=== PATIENT | male | born 1995 | race African-American/Black ===

== ENCOUNTER 2020-06-24 07:03 | Inpatient (IN) | payer MEDICAID ==
[~2020-06-24] VITALS: Ht 190.5 cm; Wt 113.4 kg
[2020-06-24] VITALS (7 sets, daily range): BP systolic 87–179; BP diastolic 61–112
[~2020-06-24 07:03] MED LIST: AVELOX 400 MG400 M1 PO; BACTRIM DS TAB1 EACH PO; BUTALB-APAP-CA1 EACH PO; GUAIFEN-CODEIN120 ML PO; IBUPROFEN 600600 M1 PO; KEFLEX500 M1 PO; NAPROSYN500 MG PO; NORCO 5-325 TA1 EACH PO; TESSALON PERLE100 MG PO; ZOFRAN ODT4 MG PO
[2020-06-24 07:40] LABS: HEMATOCRIT 37.6 % (42.0-52.0); HEMOGLOBIN 12.4 gm/dL (14.0-18.0); MCH 31.6 pg (26.0-34.0); MCHC 33.1 g/dL (28.0-37.0); MCV 95.6 fL (80.0-100.0); PLATELET COUNT 156 thou/uL (150-400); RBC 3.94 mil/uL (4.50-6.00); RDW 13.6 % (10.5-14.5); WBC 12.2 thou/uL (4.0-11.0)
[2020-06-24 07:54] LABS: ANION GAP 15 mmol/L (7-16); BUN 13 mg/dL (7-18); CALCIUM 8.6 mg/dL (8.5-10.1); CHLORIDE 101 mmol/L (98-107); CO2 21 mmol/L (21-32); CREATININE 2.1 mg/dL (0.7-1.3); GLUCOSE 180 mg/dL (74-106); POTASSIUM 5.6 mmol/L (3.5-5.1); SODIUM 137 mmol/L (136-145)
[2020-06-24 08:04] LABS: ALBUMIN 2.7 g/dL (3.4-5.0); DIRECT BILIRUBIN 0.6 mg/dL (<0.1-0.2); LIPASE 33 U/L (73-393); SGOT 24 U/L (15-37); SGPT 30 U/L (30-65); TOTAL BILIRUBIN 1.3 mg/dL (0.2-1.0); TOTAL PROTEIN 7.4 g/dL (6.4-8.2); TROPONIN-I <0.06 ng/mL (<0.06)
[2020-06-24 09:17] LABS: ABSOLUTE NEUTROPHILS 10.4 thou/uL (1.4-8.2); METAMYELOCYTES 2 %
[2020-06-24 09:18] LABS: LARGE PLATELETS OCCASIONAL
[2020-06-24 09:56] LABS: URINE BILIRUBIN 2+ (Negative); URINE BLOOD NEGATIVE (Negative); URINE CLARITY CLEAR; URINE GLUCOSE-RANDOM* NEGATIVE (Negative); URINE KETONES TRACE (Negative); URINE LEUKOCYTES-REFLEX NEGATIVE (Negative); URINE NITRITE-REFLEX NEGATIVE (Negative); URINE PROTEIN (DIPSTICK) 2+ (Negative)
[2020-06-24 09:59] LABS: URINE COLOR DK YELLOW
[2020-06-24 10:00] LABS: ICTOTEST (BILI CONFIRMATORY) Positive (Negative)
[2020-06-24 10:22] LABS: HYALINE CASTS 0-3 Few /LPF (None Seen); MUCUS 4-6 Moderate strn/LPF (None Seen); SQUAMOUS 0-3 Few /LPF (0-3)
[2020-06-24 10:23] LABS: BACTERIA-REFLEX 1-9 Few /HPF (None Seen); CRYSTALS None Seen /LPF (None Seen); URINE RBC None Seen /HPF (0-2); URINE WBC-REFLEX 0-5 Rare /HPF (0-5)
[2020-06-24 10:47] LABS: BE(vivo) -5.7 mmol/L (-2 to +3); PCO2 30.3 mmHg (35.0-45.0); PO2 64.5 mmHg (80.0-100.0); pH 7.391 (7.360-7.450); sO2 92.8 % (92.0-98.0)
[2020-06-24 12:43] LABS: AMP/METHAMP Negative (Negative); BARBITURATES Negative (Negative); BENZODIAZEPINES Negative (Negative); COCAINE Negative (Negative); METHADONE Negative (Negative); OPIATES POSITIVE (Negative); PCP Negative (Negative)
--- NOTE | 2020-06-24 14:10 | NUR ---
PT ARRIVED TO THE UNIT VIA ED GURNEY AND ONE GLASS BLOCK BENDER ESCORT. PT WAS ABLE TO TRANSFER SELF OUT OF THE GURNEY ONTO THE BED WITH NO ASSISTANCE. IT WAS NOTED THAT IN THE ED THAT PT REFUSED KNEE IMMOBILIZER. UPON ARRIVAL PT WAS ALREADY SEDATED AFTER HYDROCODONE ADMIN. RN ASSESSED THE PT AND NO ACUTE CHANGE IN PT'S STATUS SINCE ADMISSION. PT STILL ON RA, HR AROUND 100s. PT WAS FALLING ASLEEP DURING ADMISSION EVEN AFTER RN TRIED TO WAKE THE PT UP. PT'S PRIMARY CONCERN AT THIS TIME IS TO GET PLENTY OF SLEEP AND REST SO RN TURNED THE LIGHT DOWN, CREATED A LOW STIMULUS ENVIRONMENT AND PT IS SLEEPING AT THIS TIME. ONLY PT'S CELLPHONE CLOTH BIN PACKER AND PERSONAL CLOTHING WERE NOTED BELONGINGS. PT'S MOTHER CALLED ASKING FOR UPDATES, UPDATES WERE PROVIDED. PT;S MOTHER STATED THAT SHE WILL BE CALLING LATER THIS EVENING. CONTINUING TO MONITOR WILL UPDATE NEEDED
[2020-06-24 16:05] LABS: FOLIC ACID 2.8 ng/mL (8.6-58.9); TSH 0.958 uIU/mL (0.358-3.740)
--- NOTE | 2020-06-24 16:26 | EKG ---
[facility] [place] [address] ELECTROCARDIOGRAM REPORT Name: HOWECOLE Room #: 354-P ADM IN M.R.#: [id number] Admission: 06/24/20 Attend Phys: Tello Sy MD Discharge: Date of : 95 Report #: [id number] THIS REPORT FOR: cc: RANDELL - Sho family physician/PCP FAM - Sho family physician/PCP Kris Trinidad MD [facility] ~ THIS REPORT FOR: //name// [facility] ED Test Date: 2020-06-24 Test Time: 07:30:47 Pat Name: COLE HOWE Department: Room: [facility] Gender: M Instrumentation Designer: no : 1995 Requested By: Jeremi Flor Order Number: [id number] MD: Kris Trinidad Measurements Intervals [place] Rate: 113 P: 54 OR: 143 QRS: 27 QRSD: 87 T: -3 QT: 312 QTc: 428 Interpretive Statements Sinus tachycardia Probable left atrial enlargement Nonspecific T abnormalities, lateral leads No previous ECG available for comparison Electronically Signed On 06-24-2020 16:26:22 CDT by Kris Trinidad [email or web address] <ELECTRONICALLY SIGNED> By: Kris Trinidad MD, FACC 06/24/20 1626 Kris Trinidad MD, [facility] /EPI
[2020-06-25 02:06] LABS: GLYCOHEMOGLOBIN (HGB A1C) 5.2 % (4.8-5.6)
--- NOTE | 2020-06-25 03:06 | NUR ---
Patient progressing towards outcome goals. Good pain control with Hydrocodone. Has history of anxiety stopped taking medication he cannot recall. Wants to go home. IVfluids infusing. Up to bathroom with standby assist. Oxygenation optimal on roomair, afebrile this morning. Anxious BP and HR up.
[2020-06-25 05:49] VITALS: BP 182/113
[2020-06-25 07:45] VITALS: BP 188/119
[2020-06-25 08:48] LABS: ABSOLUTE NEUTROPHILS 11.4 thou/uL (1.4-8.2); BASOPHILS 0.2 % (0.0-2.0); EOSINOPHILS 0.5 % (0.0-3.0); HEMATOCRIT 36.9 % (42.0-52.0); HEMOGLOBIN 12.3 gm/dL (14.0-18.0); LYMPHOCYTES 5.7 % (24.0-44.0); MCH 31.5 pg (26.0-34.0); MCHC 33.4 g/dL (28.0-37.0); MCV 94.2 fL (80.0-100.0); PLATELET COUNT 209 thou/uL (150-400); POLYS 88.6 % (36.0-66.0); RBC 3.91 mil/uL (4.50-6.00); RDW 13.9 % (10.5-14.5); WBC 12.9 thou/uL (4.0-11.0)
[2020-06-25 09:23] LABS: ALBUMIN 2.2 g/dL (3.4-5.0); CALCIUM 8.6 mg/dL (8.5-10.1); POTASSIUM 3.3 mmol/L (3.5-5.1); TOTAL BILIRUBIN 0.7 mg/dL (0.2-1.0)
--- NOTE | 2020-06-25 14:27 | NUR ---
INITIAL ASSESSMENT: SW reviewed chart and spoke with nursing. Pt was admitted from home due to cellulitis/pneumonia/sepsis. Pt placed in Enhanced Isolation to r/o COVID-19. Pt's test is negative. Pt is afebrile and not requiring O2. Pt is on IV abx. Pt does not have health insurance. SW spoke with pt via phone. Introduced role of SW. Pt is alert/orientated x 4. Pt reports he lives at home with family. Prior to admission, pt was independent with ADLs. No use of DME. Pt states he goes to [facility] for primary care. Pt denies having any discharge needs. SW is following to assist as needed with discharge planning.
[2020-06-25] MEDS ORDERED: METOPROLOL SUCC50 MG PO (15:54)
[2020-06-25] MEDS ORDERED: STRIBILD TABLE1 EACH PO (15:54)
[2020-06-25] MEDS ORDERED: OXYCODONE-ACET1 EACH PO (15:55)
--- NOTE | 2020-06-25 16:55 | NUR ---
JANIE HAS RESTED IN ROOM THROUH THE DAY. HE IS ALERT ORIENTED X4. DENIES PAIN. BP WAS HIGH IN THE AM AND CONTRTOLLED WITH HYDRALAZINE. POSITIVE BLOOD CULTURES RESULTS CALLED FROM [facility]. PROVIDER NOTIFIED.
[2020-06-25 16:59] VITALS: BP 180/99
--- NOTE | 2020-06-25 17:51 | NUR ---
PT ARRIVED TO UNIT AT APPROX 1720 FROM 3W. PT ALERT AND ORIENTED. C/O PAIN. WILL TREAT PER ORDERS. O2 SATS WNL ON ROOM AIR. PT DENIES NEEDS/CONCERNS AT THIS TIME. WILL CONTINUE TO MONITOR. WILL PASS ON REPORT TO JAMES TEIXEIRA.
[2020-06-25 18:00] VITALS: BP 171/113
[2020-06-25 20:20] VITALS: BP 180/116
[2020-06-25 23:51] VITALS: BP 159/101
[2020-06-26 03:28] VITALS: BP 177/116
--- NOTE | 2020-06-26 04:47 | NUR ---
PT TRANSFERED FROM 3 AT BEGINNING OF SHIFT, HR AND BP HAS REMAINED ELEVATED PRN HYDRALIZINE GIVEN TWICE THROUGH THE NOC, PRN PAIN MEDS GIVEN NEEDED FOR C/O FRANZ, R KNEE PAIN, REMINDED PT TO STAY OFF OF R LEG AND TO CALL FOR ANY ASSISTANCE, TOLERATING REG DIET, VOIDING PER URINAL, WILL CON'T TO MONITOR PER MONITOR.
[2020-06-26 06:00] LABS: HEMATOCRIT 36.5 % (42.0-52.0); HEMOGLOBIN 12.5 gm/dL (14.0-18.0); MCH 32.2 pg (26.0-34.0); MCHC 34.2 g/dL (28.0-37.0); RBC 3.88 mil/uL (4.50-6.00); RDW 13.9 % (10.5-14.5); WBC 11.1 thou/uL (4.0-11.0)
[2020-06-26 06:42] LABS: CALCIUM 8.6 mg/dL (8.5-10.1); CREATININE 1.1 mg/dL (0.7-1.3)
[2020-06-26 06:43] LABS: POTASSIUM 2.7 mmol/L (3.5-5.1)
[2020-06-26 08:40] VITALS: BP 199/118
[2020-06-26 12:43] VITALS: BP 156/107
--- NOTE | 2020-06-26 16:48 | NUR ---
PT WILL NEED CRUTCHES ISSUED PRIOR TO DC. CONTACT PT TO ISSUE. WAITING ON BRACE TO BE ORDERED BY PHYSICAIN AND FITTED BY PT. PT ESTABLISHED WITH PRIMARY CARES AT [facility].
--- NOTE | 2020-06-26 16:50 | NUR ---
ASSESSMENT CHARTED - MEDS PER DEC -- SEE DEC FOR PAIN MEDICATION GIVEN. PT WITH CO'S OF HEADACHE/ LEG PAIN ON RIGHT AND PAIN DOWN THE RIGHT SIDE OF BODY. PT HAS BEEN STANDING AT THE BEDSIDE TO VOID. BRIAN DIET AND FLUIDS. NO CO'S OF NASUEA. PT WANTING A BRACE FOR HIS LEG - ASKED HIM IF THEY DID NOT GIVE HIM ONE AT [facility] AND HE STATED THEY DID AND ALSO GAVE HIM CRUTCHES - INFORMED HIM THAT HE NEEDS TO HAVE THEM DELIVERED TO [facility] FOR HIS USE. STATED HIS MOTHER WILL BRING THEM UP. PT HAS SPENT THE DAY IN A DARK ROOM WATCHING TV AND TALKING ON THE PHONE. WAITING TO BE SEEN BY INFECTIOUS DISEASE DOC. NO CO'S AT THE PRESENT TIME.
[2020-06-26 20:00] VITALS: BP 118/113
[2020-06-27] VITALS: BP 156/85
[2020-06-27 08:30] VITALS: BP 152/103; BP 156/100
[2020-06-27 11:50] VITALS: BP 152/100
[2020-06-27 16:30] VITALS: BP 170/101
[2020-06-27 18:32] VITALS: BP 164/99
--- NOTE | 2020-06-27 18:44 | NUR ---
ASSUMMED PT CARE AT APPROXIMATELY 0700. PT A&O X4. ASSESSMENT CHARTED. FALL PRECAUTIONS IN PLACE. PT DENIES HAVING CHEST PAIN. PT DENIES HAVING SOB. PT STATED HE HAD PAIN IN R KNEE, HAND AND A HEADACHE. PT RECEIVED ANALGESICS THROUGHOUT THE DAY. PT STATED ANALGESICS HELPED RELIEVE PAIN. PT AND OT CONSULTED. PT MAX ASSIST WHEN TRANSFERING. EDUCATED PT AND PT'S FAMILY ABOUT POC. PT AND PT'S FAMILY STATED UNDERSTANDING AND DENIED HAVING FURTHER QUESTIONS. PT SCHEDULED FOR PROCEDURE TOMORROW. CONSENT SIGNED. INFOMED DR. HIDALGO OF PT'S HYPOKALEMIA. ORDERS RECEIVED AND IMPLEMENTED. WILL CONTINUE TO MONITOR. PT BP ELEVATED. PRN MEDICATION GIVEN. WILL CONTINUE TO MONITOR BP. ICE PACK PROVIDED FOR FEVER. PT COMFORTABLE IN BED. PT DENIES HAVING FURTHER CONCERNS.
[2020-06-27 19:20] VITALS: BP 167/108
--- NOTE | 2020-06-27 23:41 | NUR ---
PT IS ALERT AND ORIENTED X4 LUNGS ARE CLEAR.ABDOMEN IS ROUND AND SOFT BOWEL SOUNDS ACTIVE X4. ON ROOM AIR. PT GOT UP TO CHAIR TO SLEEP IN THAT IS WHAT HE WANTED. PAIN MEDS GIVEN FOR RIGHT KNEE PAIN. IV ANTIBIOTICS GIVEN ORDERED. WILL NPO FOR SURGERY IN AM AFTER MIDNIGHT. NORMAL SINUS RHYTHM TO SINUS TACHYCARDIA ON THE MONITOR. CALL LIGHT WITHIN REACH IF NEEDS ASSISTANCE PER NURISING.
[2020-06-28] VITALS (9 sets, daily range): BP systolic 146–193; BP diastolic 89–129
[2020-06-28 04:28] LABS: CALCIUM 8.8 mg/dL (8.5-10.1); CREATININE 0.9 mg/dL (0.7-1.3)
--- NOTE | 2020-06-28 11:11 | HC ---
[facility] [place] [address] CONSULTATION Name: HOWECOLE Jovanni Room #: 218-P ADM IN ..#: [id number] Admission: 06/24/20 Attend Phys: Tello Sy MD Discharge: Date of : 95 Report #: [id number] THIS REPORT FOR: cc: RANDELL - No family physician/PCP FAM - No family physician/PCP Georges Ramos MD ~ CC: [facility] physician/PCP Tello Sy DATE OF SERVICE: 06/27/2020 HISTORY OF PRESENT ILLNESS: This 25-year-old presents with pain involving the right hand, right chest wall and right knee after a fall while intoxicated about 1 week ago. He apparently developed joint pain and then soft tissue pain, swelling, and fever. He was seen at [facility] on several occasions and felt to have cellulitis and started on antibiotics. He presents here now with ongoing symptoms, principally involving the right hand and the right knee. X-rays and MRI studies are pending. I am uncertain if previous imaging has been performed. He is somewhat apathetic and difficult to evaluate. The right chest wall reveals a rash and some redness and tenderness consistent with mild cellulitis. The right hand reveals some redness and tenderness over the fifth metacarpal and MP joint. There seems to be good range of motion, no instability, it is difficult to rule out bony injury based on clinical exam, he does seem to have some redness and swelling, possibly consistent with cellulitis at the hand. The right knee is diffusely uncomfortable and he demonstrates limited range of motion and some generalized hypersensitivity. There does seem to be mild soft tissue swelling in the prepatellar region, which could be consistent with some fluid accumulation in the bursa. The knee joint itself was difficult to assess given his subjective symptoms. There is no obvious malalignment or instability, but he does have pain with movement. There may be a mild knee effusion. There is some generalized redness and warmth consistent with cellulitis. It is difficult to rule out pyarthrosis or a prepatellar bursa infection. His laboratory studies demonstrated an elevated white count of 11,000 and mild temperature elevation. I note that he does have a history of HIV positive, but he has not had other bacterial infections, nor any other joint problems. His history is certainly suggestive of traumatic injuries to the right hand and right knee, probably consistent with contusion and sprain. I believe he may have developed cellulitis in both areas as well. Currently, his blood cultures are no growth and there is no area of drainage for culture at either the hand or the knee. I would agree that he may have some fluid in the prepatellar bursa, but he is [facility] [address] [place] [address] CONSULTATION Name: COLE HOWE Room #: 218-P [facility] IN .R.#: [id number] Admission: 06/24/20 Attend Phys: Tello Sy MD Discharge: Date of : 95 Report #: [id number] certainly too uncomfortable to tolerate a simple irrigation and debridement without anesthesia. In addition, I am concerned that he may have a joint effusion with possible contamination in the joint, which might require irrigation of the joint itself. Consequently, I think we should go ahead with x-rays and an MRI study and proceed with planning for possible irrigation of the right knee tomorrow under general anesthetic. Pending his findings and progress and my discussion with Dr. Jose, we will decide whether we would limit this to the prepatellar bursa or include an irrigation of the knee joint itself. <ELECTRONICALLY SIGNED> By: Georges Ramos MD 06/28/20 1111 1101 1113 Georges Ramos MD /nt
[2020-06-28 12:13] LABS: BF NUCLEATED CELLS 250 /mm3; BF RBC 4844 /mm3
[2020-06-28 13:31] LABS: SOURCE KNEE JOINT; TOTAL VOLUME 8 mL
[2020-06-28 13:32] LABS: CLARITY HAZY; COLOR YELLOW
[2020-06-28 13:39] LABS: BF NEUTROPHILS 46 %
[2020-06-28 13:42] LABS: BF MACROPHAGE 16 %
--- NOTE | 2020-06-28 18:08 | NUR ---
PT CARE ASSUMED AT 0700. ASSESSMENTS CHARTED. MEDICATIONS CHARTED. PT TO SURGERY AT 1000; RETURNED AT 1145. FLUID REMOVED, AREA CLEANSED AND LEFT OPEN; PACKED AND LIZANDRO WRAPPED. PT HAS RECIEVED FENTANYL FOR PAIN. PLACED LH IV; RAC STILL REMAINS. PT MANAGED TRANSFER FROM BED TO CHAIR. RHYTHM ST IN 110'S. AO X 4. USES URINAL.
[2020-06-29 00:25] VITALS: BP 148/99
--- NOTE | 2020-06-29 03:51 | NUR ---
ASSESSMENTS CHARTED, MEDS CHARTED GIVEN. PATIENT SITTING IN RECLINER AT START OF SHIFT. MOVED TO BED WITH ASSIST OF ONE. STILL NEEDS TO MEET WITH PHYSICAL THERAPY TO WORK ON CRUTCH SKILLS. PAIN MEDS GIVEN AT FIRST OF SHIFT. FALL PRECAUTIONS IN PLACE DURING SHIFT. ICE PACK GIVEN TO ALTERNATE BETWEEN KNEE AND HAND.
[2020-06-29 05:49] VITALS: BP 139/92
[2020-06-29 07:00] VITALS: BP 145/98
[2020-06-29 09:06] LABS: CD4 % 24.3 % (30.8-58.5); CD4:CD8 0.55 (0.92-3.72); CD8 % 44.3 % (12.0-35.5)
[2020-06-29 10:13] LABS: CALCIUM 8.8 mg/dL (8.5-10.1); CREATININE 0.9 mg/dL (0.7-1.3); POTASSIUM 3.6 mmol/L (3.5-5.1)
--- NOTE | 2020-06-29 11:31 | O ---
[facility] [place] [address] OPERATIVE REPORT Name: COLE HOWE Jovanni Room #: 218-P [facility] IN ..#: [id number] Admission: 06/24/20 Attend Phys: Tello Sy MD Discharge: Date of : 95 Report #: [id number] THIS REPORT FOR: cc: [facility] - No family physician/PCP FAM - No family physician/PCP Georges Ramos MD ~ CC: [facility] physician/PCP Tello Sy DATE OF SERVICE: 06/28/2020 PREOPERATIVE DIAGNOSIS: Infected right knee with prepatellar bursitis and infected right hand with dorsal cellulitis. POSTOPERATIVE DIAGNOSIS: Right knee prepatellar bursitis abscess and right hand dorsal soft tissue abscess. PROCEDURES PERFORMED: 1. Irrigation and debridement, right knee prepatellar infected bursitis. 2. Open debridement and irrigation of abscess, dorsum right hand. 3. Aspiration, right knee for synovial fluid analysis and culture. SURGEON: Georges Ramos MD INDICATIONS: This 25-year-old gentleman fell 1 week ago while intoxicated landing on the right knee and the right hand. Subsequently, he has developed pain, swelling and fever with findings consistent with infection. He has been on antibiotics, but does not have any wound cultures yet. Blood cultures are currently pending. His clinical exam and MRI study suggests no significant structural injuries to the right knee, but there is obvious swelling and pain over the prepatellar bursa consistent with an infected bursitis. The right hand has less significant tenderness, redness and swelling over the dorsum of the hand consistent with soft tissue abscess. X-rays reveal no evidence of fracture. DESCRIPTION OF PROCEDURE: The patient was taken to the operating room where he was placed under brief general anesthetic. He has been continued on his preoperative antibiotic regimen. The right knee and leg were meticulously prepped and draped. A skin incision was made over the anterior aspect of the knee, exposing the prepatellar bursa. A moderate amount of purulent material was removed. Cultures were sent. The bursa was aggressively irrigated with suction lavage. The wound was left open. A moderate amount of iodoform gauze was gently packed in the wound simply to keep the skin incision open and allow continued drainage. Once this wound was dry and , the upper medial border of the knee was once again prepped and then a needle was used to aspirate the joint fluid. The fluid appears to be clear and nonpurulent most consistent [address] [address] OPERATIVE REPORT Name: HOWECOLE Room #: 218-P [facility] IN ..#: [id number] Admission: 06/24/20 Attend Phys: Tello Sy MD Discharge: Date of : 95 Report #: [id number] with simple synovitis. A specimen was sent for cell count and culture. I elected not to perform an open arthrotomy nor more aggressive irrigation of the knee given these limited clinical findings. A sterile dressing was then applied to the knee. Attention was then directed to the right hand, which was meticulously prepped and draped. There was mild puffiness and redness over the dorsum of the hand overlying the fifth MP joint. There was no skin abrasion and no laceration and no evidence of bony injury. His preoperative x-rays have been normal. I elected to simply aspirate the subcutaneous tissues initially. This did reveal purulent material consistent with subcutaneous abscess. Given this, a small skin incision was made exposing this area. This was then copiously irrigated and then also left open with a small amount of iodoform packing. It does not appear to me that the MP joint was involved and I elected not to violate the joint with needle aspiration at this time as I am concerned that I will simply inoculate the joint with overlying infection. A sterile dressing was applied. The patient was awakened and returned to recovery room in satisfactory condition. <ELECTRONICALLY SIGNED> By: Georges Ramos MD 06/29/20 1131 1109 1156 Georges Ramos MD /nt
[2020-06-29 12:00] VITALS: BP 140/72
[2020-06-29 15:30] VITALS: BP 141/80
--- NOTE | 2020-06-29 17:27 | NUR ---
ASSUMED CARE PT SHIFT CHANGE. ASSESSMENTS CHARTED.MEDS GIVEN PER DEC. PT ALERT AND ORIENTED.VSS. C/O PAIN MANAGED WITH PO & IV MEDS. O2 SATS WNL ON RA DENIES SOB. PT UP WITH PHYS THERAPY TOLERATING FAIR. RIGHT HAND AND KNEE DRESSINGS CHANGED PER ORTHO PHYSICIAN ORDER. FAMILY UPDATED ON POC. PT CURRENTLY SITTING UP IN BED DENIES NEEDS. WILL CONT TO MONITOR AND FOLLOW POC. WILL PASS ON REPORT TO JAMES TEIXEIRA.
[2020-06-29 20:29] VITALS: BP 143/77
--- NOTE | 2020-06-30 02:05 | NUR ---
ASSESSMENTS CHARTED, MEDS CHARTED GIVEN. PATIENT RESTING IN BED DURING SHIFT. PATIENT UP WITH WALKER TO BATHROOM. HAD BOWEL MOVEMENT. C/O PAIN IN RIGHT KNEE DURING START OF SHIFT. IV ABX THERAPY. FALL PRECAUTIONS IN PLACE DURING SHIFT.
[2020-06-30 05:42] VITALS: BP 147/89
[2020-06-30 07:35] VITALS: BP 144/67
--- NOTE | 2020-06-30 09:33 | NUR ---
LIZANDRO WRAP, KERLIX DRESSINGS INPLACE WITH NO DRINAGE NOTED TO RIGHT HAND AND RIGHT KNEE.
[2020-06-30 11:27] VITALS: BP 142/75
--- NOTE | 2020-06-30 14:19 | NUR ---
spoke with patient who reports he does not have health insurance. He does not have a PCP utilizes Dr Jose. He called mother on speaker phone. Alerted [employer] left some information in room to assist with completion of medicaid application. Alerted to mom it highlightts the information like copy of certificate, drivers licease, SS card and pertinent information to apply for [place] medicaid. Updated Dr Gonzalez and Dr Jose no insurance to determine dc planning.
[2020-06-30 15:44] VITALS: BP 153/85
--- NOTE | 2020-06-30 16:42 | NUR ---
NO EVENTS THROUGHOUT THE SHIFT. PT/OT SIGNED OFF ON PT. OK TO GET UP ADLIB TO BATHROOM. PT ANXIOUS TO GO HOME. PT DOES NOT HAVE INSURANCE. [employer] SECURITY ARCHITECT WORKING WITH HIM. AWAITING WHAT DR. ESCALANTE SAYS ABOUT ABX UPON DISCHARGE. PT WOULD NEED PICC/MIDLINE FOR OUTPT ABX. DR. ESCALANTE NOT ROUNDED OF THIS TIME TODAY.
[2020-06-30 19:41] VITALS: BP 153/89
--- NOTE | 2020-07-01 04:47 | NUR ---
PT IS ALERT AND ORIENTED X4. LUNGS ARE CLEAR ON ROOM AIR. UP AND AMBUALTED CLEANED HIMSELF UP IN BATHROOM. BOWEL SOUNDS ACTIVE X4. PAIN MEDS GIVEN SEE MAR FOR TIME OF ADMINISTRATION TIME. RIGHT KNEE IS WRAPPED AND RIGHT HAND IS WRAPPED UP. SLEEPING WELL CALL LIGHT WITHIN REACH IF NEEDS ASSISTANCE PER NURSING. NO ISSUES OR CONCERNS. GETING ANTIBIOTICS ORDERED
[2020-07-01 05:41] VITALS: BP 145/81
[2020-07-01 08:30] VITALS: BP 169/93
[2020-07-01] MEDS ORDERED: ZYVOX600 MG PO (10:32)
--- NOTE | 2020-07-01 11:28 | NUR ---
Patient to ne home. Vouched medication in [facility] pharmacy for $35.48.
[2020-07-01 11:30] VITALS: BP 148/100
[2020-07-01 13:51] VITALS: BP 139/88
== END 2020-07-01 15:32 | disposition home or self-care (01) | DRG 853 ==
LOC: ER 07:03 → EROBS 10:53 → 2N 10:53 → 3W 13:17 → 2N 06-25 17:19
PROVIDERS: Emergency Medicine; Hospitalist; Nurse Practitioner; Orthopaedic Surgery; Specialist; ADMIT Hospitalist; ATTEND Hospitalist
PROC: 0M9N3ZZ Drainage of Right Knee Bursa and Ligament, Percutaneous Approach (ICD-10-PCS; principal; 2020-06-28)
PROC: 0J9J0ZZ Drainage of Right Hand Subcutaneous Tissue and Fascia, Open Approach (ICD-10-PCS; principal; 2020-06-28)
DX: A41.9 Sepsis, unspecified organism (principal); J18.9 Pneumonia, unspecified organism; E44.0 Moderate protein-calorie malnutrition; N17.9 Acute kidney failure, unspecified; L02.415 Cutaneous abscess of right lower limb; L03.113 Cellulitis of right upper limb; J98.11 Atelectasis; R65.20 Severe sepsis without septic shock; E87.6 Hypokalemia; E66.9 Obesity, unspecified; M71.161 Other infective bursitis, right knee; Z20.828 Contact with and (suspected) exposure to other viral communicable diseases; Z68.31 Body mass index [BMI] 31.0-31.9, adult; Z79.899 Other long term (current) drug therapy
CPT/HCPCS: 10081; 10879; 50101; 50386; 57091; 62110; 62900; 70005

== ENCOUNTER 2020-09-02 15:51 | Inpatient (IN) | payer MEDICAID ==
[~2020-09-02] VITALS: Ht 188 cm; Wt 126.8 kg
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
[~2020-09-02 15:51] MED LIST changes: +METOPROLOL SUCC50 MG PO; +OXYCODONE-ACET1 EACH PO; +STRIBILD TABLE1 EACH PO; +ZYVOX600 MG PO
[2020-09-02 16:17] LABS: ABSOLUTE NEUTROPHILS 2.6 thou/uL (1.4-8.2); BASOPHILS 0.5 % (0.0-2.0); EOSINOPHILS 0.2 % (0.0-3.0); HEMATOCRIT 45.5 % (42.0-52.0); MCH 31.7 pg (26.0-34.0); MCV 95.9 fL (80.0-100.0); MONOCYTES 8.8 % (1.0-8.0); PLATELET COUNT 250 thou/uL (150-400); POLYS 59.5 % (36.0-66.0); RBC 4.75 mil/uL (4.50-6.00); WBC 4.4 thou/uL (4.0-11.0)
[2020-09-02 16:21] LABS: ANION GAP 22 mmol/L (7-16); BUN 11 mg/dL (7-18); CALCIUM 9.3 mg/dL (8.5-10.1); CHLORIDE 103 mmol/L (98-107); CO2 18 mmol/L (21-32); CREATININE 1.4 mg/dL (0.7-1.3); GLUCOSE 72 mg/dL (74-106); POTASSIUM 3.3 mmol/L (3.5-5.1); SODIUM 143 mmol/L (136-145)
[2020-09-02 16:27] LABS: ALBUMIN 4.4 g/dL (3.4-5.0); SALICYLATE < 2.8 mg/dL (2.8-20.0); SGOT 40 U/L (15-37); SGPT 47 U/L (30-65); TOTAL BILIRUBIN 0.3 mg/dL (0.2-1.0); TOTAL PROTEIN 8.2 g/dL (6.4-8.2)
[2020-09-02] MEDS ORDERED: KEFLEX500 M1 PO (16:30)
[2020-09-02 16:49] LABS: URINE BILIRUBIN NEGATIVE (Negative); URINE BLOOD NEGATIVE (Negative); URINE CLARITY CLEAR; URINE COLOR YELLOW; URINE GLUCOSE-RANDOM* NEGATIVE (Negative); URINE KETONES 1+ (Negative); URINE LEUKOCYTES-REFLEX NEGATIVE (Negative); URINE NITRITE-REFLEX NEGATIVE (Negative); URINE PROTEIN (DIPSTICK) NEGATIVE (Negative); URINE SPECIFIC GRAVITY >= 1.030 (1.005-1.035); URINE UROBILINOGEN 0.2 E.U./dl (0.2-1.0)
[2020-09-02 16:57] LABS: AMP/METHAMP Negative (Negative); BARBITURATES POSITIVE (Negative); BENZODIAZEPINES Negative (Negative); COCAINE POSITIVE (Negative); METHADONE Negative (Negative); OPIATES Negative (Negative); PCP Negative (Negative)
[2020-09-02 16:58] VITALS: BP 154/99
[2020-09-02 17:18] LABS: BE(vivo) -9.5 mmol/L (-2 to +3); HCO3 16.7 mmol/L (22.0-26.0); PCO2 VENOUS 37.5 mmHg (41.0-51.0)
[2020-09-02 20:06] LABS: MAGNESIUM 1.7 mg/dL (1.8-2.4)
[2020-09-02 23:46] VITALS: BP 164/82
[2020-09-03] VITALS (40 sets, daily range): BP systolic 127–207; BP diastolic 72–130
--- NOTE | 2020-09-03 00:15 | NUR ---
0000- patient arrived at 2350, He was assisted to the ICU bed from the cart, with security. He is restless and aggitated. Security along with clubhouse attendant, multiple nurses, and sitter helped him through his arrival to ICU as he was frustrated being here. Reassurance and plan of care explained to patient. He expressed he isn't suicidal and he probably just said that because he was drunk and did some drugs. He pulled off his panel monitor, o2 sat probe, and expressed we better not touch him again to put them back on. Again, reassurance provided. Nurse to continue to monitor patient status.
--- NOTE | 2020-09-03 00:45 | NUR ---
0038- Nurse called MASTERCAM PROGRAMMER in regards to patients aggitation and restlessness. Nurse also expressed there is no order for restraints. Nurse to continue to monitor patient status.
--- NOTE | 2020-09-03 02:09 | NUR ---
0209-Nurse left message with NUCLEAR MONITORING TECHNICIAN in regards to patients blood pressure of 206/101 and heart rate of 95. Also, still need restraint order entered, as RN called her earlier, after he arrived to ICU.
--- NOTE | 2020-09-03 02:10 | NUR ---
0137- Nurse called security to assist with belongings of patient. Also, patient needed soft wrist restraints. He is restless and aggitated, with mild startle and hallucinations. Will continue to monitor.
--- NOTE | 2020-09-03 02:35 | NUR ---
0230- Patients mother, Raina, called and wated an update on patient status. She answered some personal questions about patient and gave her the security code. Patient expressed she is his social contact worker and wants to talk with her, nurse explained the SI rules. Patients mom expressed she will come up here to be with him when cleared by the Physician. Nurse explained the SI policy, she expressed the patient has been through a lot and she wants him to get better, and that she is the one that found him today. Nurse provided reassurance and the phone call was ended.
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
[2020-09-03 09:02] LABS: HEMATOCRIT 44.7 % (42.0-52.0); HEMOGLOBIN 14.6 gm/dL (14.0-18.0); MCH 31.7 pg (26.0-34.0); MCHC 32.6 g/dL (28.0-37.0); MCV 97.3 fL (80.0-100.0); RBC 4.59 mil/uL (4.50-6.00); RDW 14.6 % (10.5-14.5); WBC 4.1 thou/uL (4.0-11.0)
[2020-09-03 09:26] LABS: CALCIUM 8.7 mg/dL (8.5-10.1); CREATININE 1.5 mg/dL (0.7-1.3)
[2020-09-03 09:27] LABS: POTASSIUM 4.6 mmol/L (3.5-5.1)
--- NOTE | 2020-09-03 10:24 | NUR ---
0700-ASSUMED CARE OF PT.--VW 0830-PT'S MOM,CHRISTA,CALLED IN TO [facility] ON PT. UPDATE GIVEN. REINFORCED NO VISITORS, NO FAMILY CONTACT, NO PHONE CALLS ALLOWED UNTIL SEEN BY PSYCH. SHE VERBALIZED SHE UNDERSTOOD. PRECEDEX DRY.WHILE WAITING FOR NEW BAG FROM PHARMACY, ATIVAN GIVEN.--VW 1030-LABS OBTAINED EARLIER. SHIRT CUT OFF. EARRING LT EAR (NONE IN RT) REMOVED & BAGGED.WILL SEND TO SECURITY. 2 SMALL NOSE PIERCINGS (1 EACH NARE) LEFT IN-UNABLE TO RETRIEVE EASILY & PT WAKING UP WHILE ATTEMPT MADE. RESP DEEP, EVEN, REGULAR.--VW
--- NOTE | 2020-09-04 05:35 | NUR ---
ASSUMED PATIENT CARE AT 1845. VITAL SIGNS STABLE WITH PATIENT HAVING NO COMPLAINTS OF PAIN OR NAUSEA. FULLY ORIENTED, PATIENT IS ABLE TO CALL APPROPRIATELY FOR NEEDS. RESTRAINED DUE TO AGITATION THROUGHOUT SHIFT. PATIENT HAS BECAME CALMER SHIFT HAS PROGRESSED ALLOWING NURSE TO TITRATE PRECEDEX DOWN. PATIENT IS STILL INSISTENT IN SPEAKING TO FAMILY MEMBERS AND LEAVING FACILITY DESPITE BEING INFORMED OF PROTOCOLS. NO SELF BEHAVIORS, OR AGGRESSIVE BEHAVIORS NOTED. PATIENT KEPT MOSTLY NPO WITH SMALL AMOUNT OF ICE CHIPS GIVEN FOR COMFORT. QT INTERVAL MONITORED THROUGHOUT SHIFT WITH NORMAL FINDINGS. POSSIBLE TRANSFER OUT OF ICU TODAY. CONTINUE PLAN OF CARE.
[2020-09-04 05:41] LABS: HEMATOCRIT 42.7 % (42.0-52.0); HEMOGLOBIN 14.2 gm/dL (14.0-18.0); MCH 31.5 pg (26.0-34.0); MCHC 33.2 g/dL (28.0-37.0); MCV 94.8 fL (80.0-100.0); RBC 4.5 mil/uL (4.50-6.00); RDW 13.9 % (10.5-14.5); WBC 4.6 thou/uL (4.0-11.0)
[2020-09-04 05:52] LABS: CREATININE 1.4 mg/dL (0.7-1.3); POTASSIUM 3.9 mmol/L (3.5-5.1)
[2020-09-04 07:00] VITALS: BP 136/79
[2020-09-04 07:59] VITALS: BP 144/78
[2020-09-04 08:02] VITALS: BP 140/74
--- NOTE | 2020-09-04 09:45 | NUR ---
chart review. unable to visit with his rt SI precaution. report from bedside nurse. md de consult, no affidavit as of now.
--- NOTE | 2020-09-04 12:37 | NUR ---
Case discussed with the care team. Pt tx to CCU from ICU and is s/p cabg. Chest tube dc'd per CTS and the pt is working with therapy. He was indep prior to admission and lives with his . He had two steps to enter his single story home. No assistive device prior to admission. He is retired and drives. Will follow along and see how he does with therapy. Anticipate dc to home Monday or Monday pending his progress.
--- NOTE | 2020-09-04 14:27 | NUR ---
assumed care of patient at 0700, pt is A/O times 4. pt is very restless and repetitive with his requests and concers. pt has severally stated that he does not want to be here and would like to go home. this nurser, the physicians and the mom have explained to him on multiple occasions why is not in a position to make the decision. mother has been updated and she has been here to see the patient. pt will some times refuse care and refuse to be touched even for assesmemt. case management working to find a facility that will have bed availability for the pt. pt with transfer orders out of ICU. report called and given to accepting nurse.
[2020-09-04 16:35] VITALS: BP 176/112
--- NOTE | 2020-09-04 16:58 | NUR ---
Assumed care of pt. in the afternoon. Pt. was nervous and hyperactive. Vitals were stable. Sitter in place.
[2020-09-04 20:17] VITALS: BP 167/116
[2020-09-05 06:41] VITALS: BP 144/112
--- NOTE | 2020-09-05 09:09 | NUR ---
PT AOX4. PT DENIES PAIN AND SOB WHILE ON ROOM AIR. PT REPORTS ANXIETY WITH OBSERVED RESTLESSNESS. PT RECEIVING PRN IV ATIVAN Q4HR. PT DENIES SUICIDAL IDEATION, PLAN, AND DEPRESSION. SITTER MAINTAINED, ROOM CLEANED. PT REFUSING TO REMOVE PHONE FROM PERSON DUE TO REPORTS OF SUPPORT FROM FAMILY VIA FACETIME. PT OBSERVED WITHOUT BEHAVIORAL SIGNS OF CONCERN. ISRA COATS NOTIFIED, RECEIVED ORDERS THAT PT MAY KEEP PHONE ON PERSON HE IS NOT SHOWING SIGNS OF SAFETY CONCERN. PT AMBULATING IN ROOM AND TO BATHROOM INDEPENDENTLY. PT TOLERATING PO INTAKE OF FLUIDS AND REGULAR DIET WITHOUT ISSUE. PT NOTED TO HAVE EMESIS X1 AT START OF SHIFT DUE TO REPORTS OF COUGHING. PT ENCOURAGED TO NOTIFY STAFF FOR ALL NEEDS, SITTER TO BE MAINTAINED, FREQUENT MONITORING WILL CONTINUE.
[2020-09-05 10:27] VITALS: BP 157/116
--- NOTE | 2020-09-05 15:24 | NUR ---
Assumed care of pt. at 0700. Was alerted that there were some issues overnight d/t initially being allowed to have his cellphone in ICU. Christie TEIXEIRA was able to get orders for pt. to keep cellphone as long as he did not have the machine preservative filler in the room. Pt. then requested he have a visitor come up, but his mother had already been in the hosiptal with him in the ICU and our unit last night. Transformer Builder Dara was notified as well as security. Pt. became distressed and was pacing in room. Transformer Builder Dara spoke with patient and risk management and said that he could have the visitor in his room as long as he was screened by security before entering hospital. Pt. became far less volitile upon visitor entering room.
[2020-09-05 15:30] VITALS: BP 153/102
[2020-09-05 20:08] VITALS: BP 115/112
--- NOTE | 2020-09-06 03:21 | NUR ---
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
[2020-09-06 07:02] VITALS: BP 134/85
--- NOTE | 2020-09-06 11:46 | NUR ---
Assumed care of pt at 0700. Pt sleepy in the am and asks the nurse to come back later with morning meds. Pt's brother spotted on the unit and stopped by nurse before going to the room per Dr Marques order. Pt becomes more agitated and wants brother to visit since mother is out of town. Explanation given to patient. Dr Marques paged through the answering service but no call back received. Medical Transcriber was called and came to unit to talk to the patient. Talked to pt's mother on the phone and updated on situation. Sitter 1:1. Will continue to monitor.
[2020-09-06 16:07] VITALS: BP 148/103
[2020-09-06 22:44] VITALS: BP 155/104
--- NOTE | 2020-09-07 03:20 | NUR ---
PT AOX4. PT DENIES PAIN AND SOB WHILE ON ROOM AIR. PT REPORTS ANXIETY AT HS, NOTED TO HAVE RESTLESSNES. PT RECEIVING PRN IV ATIVAN Q4HR. PT DENIES SUICIDAL AND HOMICIDAL IDEATION. PT MAINTAINS 1:1, NO UNSAFE BEHAVIORS OBSERVED. PT TOLERATING PO INTAKE OF FLUIDS AND REGULAR DIET WITHOUT ISSUE. PT WIHOUT NAUSEA AND VOMITING. PT AMBULATING IN ROOM AND TO BATHROOM INDEPENDENTLY. PT ENCOURAGED TO NOTIFY STAFF FOR ALL NEEDS, CALL LIGHT WITHIN REACH, BED IN LOWEST POSITION, 1:1 MAINTAINED, FREQUENT MONITORING WILL CONTINUE.
--- NOTE | 2020-09-07 07:22 | EKG ---
[facility] [place] [address] ELECTROCARDIOGRAM REPORT Name: COLE HOWE Room #: 438-P ADM IN M.R.#: [id number] Admission: 09/02/20 Attend Phys: Akira Delgadillo MD Discharge: Date of : 89 Report #: [id number] THIS REPORT FOR: cc: RANDELL - Sho family physician/PCP FAM - No family physician/PCP Kris Trinidad MD [facility] ~ THIS REPORT FOR: //name// [facility] ED Test Date: 2020-09-02 Test Time: 17:17:21 Pat Name: COLE HOWE Department: Room: [facility] Gender: M Medical Front Desk Specialist: jennifer : 1995 Requested By: Jamal Caballero Order Number: [id number] MD: Kris Trinidad Measurements Intervals [place] Rate: 105 P: 22 GA: 139 QRS: 42 QRSD: 90 T: 22 QT: 348 QTc: 461 Interpretive Statements Sinus tachycardia Probable left atrial enlargement ST elev, probable normal early repol pattern Compared to ECG 06/24/2020 07:30:47 ST (T wave) deviation now present T-wave abnormality no longer present Electronically Signed On 09-07-2020 7:22:46 [employer]SEM[employer] by Kris Trinidad [email or web address] <ELECTRONICALLY SIGNED> By: Kris Trinidad MD, FACC 09/07/20 0722 16 16 Kris Trinidad MD, FACC /EPI
--- NOTE | 2020-09-07 10:58 | NUR ---
ASSUMED CARE AT 0700. PT IS A&O X4. PT HAS A SITTER WITH HIM DURING SHIFT. PT WAS GIVEN HOME MEDICATION IN THE AM. RIGHT IV AC IS INTACT AND SHOWS NO SIGNS OF REDNESS OR SWELLING. PT DENIES ANY SOA, DIZZINESS, N/V. PT IS READY TO GO HOME. PT HAS DISCHARGE PAPERS READY FOR HIM. IV WILL BE D/C. SPOKE TO MOTHER GAIL AND GAVE THE MESSAGE TO ELECTRONICS TECH. BED IS ON LOWEST POSTION.
[2020-09-07 12:19] VITALS: BP 155/104
[2020-09-07 12:49] VITALS: BP 155/104
--- NOTE | 2020-09-07 13:08 | NUR ---
ON-GOING ASSESSMENT: CM REVIEWED CHART AND SPOKE WITH ATTENDING WELL PSYCHIARTIST. PT IS CLEARED TO GO HOME AND FOLLOW UP OUTPATIENT WITH [facility]. [facility] NUMBER WAS PROVIDED IN DISCHARGE PAPERWORK. CM ALSO SPOKE WITH PTS MOTHER WHOM HE LIVES WITH AND DISCUSSED OUTPATIENT FOLLOW UP. PT AND MOTHER REPORT NO FURTHER QUESTIONS PRIOR TO DISCHARGE. CASE CLOSED.
== END 2020-09-07 13:57 | disposition home or self-care (01) | DRG 918 ==
LOC: ER 15:51 → EROBS 19:15 → 4S 19:15 → ICU 09-03 00:08 → 4S 09-04 15:06
PROVIDERS: Emergency Medicine; Nurse Practitioner Family; ADMIT Hospitalist; ATTEND Hospitalist
DX: T42.3X2A Poisoning by barbiturates, intentional self-harm, initial encounter (principal); I42.9 Cardiomyopathy, unspecified; N17.9 Acute kidney failure, unspecified; M62.82 Rhabdomyolysis; T54.92XA Toxic effect of unspecified corrosive substance, intentional self-harm, initial encounter; T39.312A Poisoning by propionic acid derivatives, intentional self-harm, initial encounter; T45.0X2A Poisoning by antiallergic and antiemetic drugs, intentional self-harm, initial encounter; Z21 Asymptomatic human immunodeficiency virus [HIV] infection status; I10 Essential (primary) hypertension; E66.9 Obesity, unspecified; F39 Unspecified mood [affective] disorder; F19.10 Other psychoactive substance abuse, uncomplicated; Z20.828 Contact with and (suspected) exposure to other viral communicable diseases; Y92.89 Other specified places as the place of occurrence of the external cause; Z68.35 Body mass index [BMI] 35.0-35.9, adult; Z79.899 Other long term (current) drug therapy
CPT/HCPCS: 10078; 10102

== ENCOUNTER → 2021-03-01 | Emergency (ER) | payer OTHER | LOC: ER 09:27 | DX: Z02.89 Encounter for other administrative examinations (principal); Z53.21 Procedure and treatment not carried out due to patient leaving prior to being seen by health care provider; Y04.0XXA Assault by unarmed brawl or fight, initial encounter; Y93.89 Activity, other specified; Y92.89 Other specified places as the place of occurrence of the external cause; Y99.9 Unspecified external cause status ==